=== PATIENT | male | born 1960 | race Caucasian/White ===

== ENCOUNTER 2019-06-19 08:07 | Emergency (ER) | payer BC ==
[~2019-06-19] VITALS: Ht 165.1 cm; Wt 70.3 kg
[2019-06-19 08:12] VITALS: BP 150/75
== END 2019-06-19 09:13 | disposition home or self-care (01) ==
LOC: ER 08:08
DX: R20.2 Paresthesia of skin (principal); M19.90 Unspecified osteoarthritis, unspecified site; F12.90 Cannabis use, unspecified, uncomplicated
CPT/HCPCS: 99281